=== PATIENT | female | born 1965 | race Caucasian/White ===

== ENCOUNTER 2022-06-11 06:59 | Day surgery (SDC) | payer BC ==
[2022-06-10 11:06] VITALS: BMI 28.3
[2022-06-11] MEDS ORDERED: Ropivacaine 0.5% HCl/PF (150 MG/30 ML VIAL) ONE (08:32)
[2022-06-11] MEDS ORDERED: FENTANYL 50 MCG/ML 1 ML VIAL ONE ×2 (08:32→12:07)
[2022-06-11] MEDS ORDERED: Midazolam HCl 2 mg/2 ml Vial ONE (08:32)
[2022-06-11] MEDS ORDERED: Scopolamine 1.5 mg/72 hour Patch ONE (08:40)
[2022-06-11] MEDS ORDERED: Ondansetron PF 4 MG/2 ML Vial ONE ×2 (08:40→10:01)
[2022-06-11] MEDS ORDERED: PHENYLEPHRINE-NS 100 MCG/ML 10 ML SYRINGE ONE (09:49)
[2022-06-11] MEDS ORDERED: Sodium Chloride 0.9% 100 ML ONE (09:53)
[2022-06-11] MEDS ORDERED: CEFAZOLIN 2 GM VIAL ONE (09:53)
[2022-06-11] MEDS ORDERED: fentaNYL PF 100 MCG/2 ML SYRINGE ONE (10:00)
[2022-06-11] MEDS ORDERED: Dexamethasone 20 MG/5 ML VIAL ONE (10:01)
[2022-06-11] MEDS ORDERED: Glycopyrrolate 0.2 MG/ML 5 ML SYRINGE ONE (10:01)
[2022-06-11] MEDS ORDERED: Ketorolac Tromethamine 30 MG/ML VIAL ONE (10:01)
[2022-06-11] MEDS ORDERED: NEOSTIGMINE 3 MG/3 ML SYR 3 MG/3 ML SYRINGE ONE (10:01)
[2022-06-11] MEDS ORDERED: PROPOFOL 200 MG/20 ML VIAL ONE (10:01)
[2022-06-11] MEDS ORDERED: Bupivacaine/Epinephrine 0.25% 30 ML VIAL ONE (10:29)
[2022-06-11] MEDS ORDERED: FENTANYL 50 MCG/ML 1 ML VIAL SLOW IVP PRN (11:53)
[2022-06-11] MEDS ORDERED: Ropivacaine 0.2% 550 ML 550 ML NERVE BLCK SCH (12:00)
[2022-06-11] MEDS ORDERED: Promethazine HCl 25 MG/ML VIAL IM PRN (12:00)
[2022-06-11] MEDS ORDERED: Ketorolac Tromethamine 30 MG/ML VIAL IVP PRN (12:00)
[2022-06-11] MEDS ORDERED: Zolpidem Tartrate 5 MG TAB PO PRN (12:00)
[2022-06-11] MEDS ORDERED: Ondansetron PF 4 MG/2 ML Vial IVP PRN (12:00)
== END 2022-06-11 14:50 | disposition home or self-care (01) ==
LOC: SDC 06:59
PROVIDERS: ATTEND Orthopaedic Surgery
PROC: 0LQ24ZZ Repair Left Shoulder Tendon, Percutaneous Endoscopic Approach (ICD-10-PCS; principal; 2022-06-11)
DX: M75.112 Incomplete rotator cuff tear or rupture of left shoulder, not specified as traumatic (principal); M75.52 Bursitis of left shoulder; M75.42 Impingement syndrome of left shoulder; G89.29 Other chronic pain; M25.512 Pain in left shoulder; H81.09 Meniere's disease, unspecified ear; Z79.899 Other long term (current) drug therapy; Z88.5 Allergy status to narcotic agent
CPT/HCPCS: A4306; C1713; J1100; J1885; J2250; J2405; J2704; J2795; J3010; J3490

== ENCOUNTER 2023-11-05 07:15 | Day surgery (SDC) | payer BC ==
[2023-11-02 15:24] VITALS: BMI 28.3
[2023-11-05] MEDS ORDERED: EPINEPHrine 1 MG/ML VIAL ONE (08:01)
[2023-11-05] MEDS ORDERED: Lidocaine 1% (PF) 30 ML VIAL ONE (08:02)
[2023-11-05] MEDS ORDERED: fentaNYL 50 mcg/mL 1 mL Vial ONE ×2 (08:09→08:39)
[2023-11-05] MEDS ORDERED: Midazolam HCl 2 mg/2 ml Vial ONE (08:10)
[2023-11-05] MEDS ORDERED: Ropivacaine 0.5% HCl/PF (150 MG/30 ML VIAL) ONE (08:10)
[2023-11-05] MEDS ORDERED: Ropivacaine 0.2% HCl/PF 20 ML ONE (08:10)
[2023-11-05] MEDS ORDERED: CEFAZOLIN 2 GM VIAL ONE (08:15)
[2023-11-05] MEDS ORDERED: Sodium Chloride 0.9% 100 ML ONE (08:16)
[2023-11-05] MEDS ORDERED: PROPOFOL 20 ML ONE (08:38)
[2023-11-05] MEDS ORDERED: Ondansetron PF 4 MG/2 ML Vial IVP PRN (08:45)
[2023-11-05] MEDS ORDERED: Promethazine HCl 25 MG/ML VIAL IM PRN (08:45)
[2023-11-05] MEDS ORDERED: HYDROcodone/Acetaminophen 10/325 mg Tablet PO PRN ×2 (08:45)
[2023-11-05] MEDS ORDERED: Ropivacaine 0.2% 550 ML 550 ML NERVE BLCK SCH (08:45)
[2023-11-05] MEDS ORDERED: Zolpidem Tartrate 5 MG TAB PO PRN (08:45)
[2023-11-05] MEDS ORDERED: traMADol HCl 50 MG TAB PO PRN ×2 (08:45)
[2023-11-05] MEDS ORDERED: Metoclopramide HCl 10 MG (2 mL) VIAL ONE (08:48)
[2023-11-05] MEDS ORDERED: Esmolol 100 MG/10 ML VIAL ONE (08:48)
[2023-11-05] MEDS ORDERED: Rocuronium Bromide 10 MG/ML (10ML VIAL) ONE (08:48)
[2023-11-05] MEDS ORDERED: diphenhydrAMINE 50 MG/ML VIAL ONE (08:48)
[2023-11-05] MEDS ORDERED: Ketorolac Tromethamine 30 MG (1 mL) VIAL ONE (08:48)
[2023-11-05] MEDS ORDERED: Ondansetron PF 4 MG/2 ML Vial ONE (09:31)
[2023-11-05] MEDS ORDERED: Dexamethasone 4 mg/ml Vial ONE (09:31)
[2023-11-05] MEDS ORDERED: PHENYLEPHRINE-NS 100 MCG/ML 10 ML SYRINGE ONE (09:40)
[2023-11-05] MEDS ORDERED: Phenylephrine 10 MG/ML VIAL ONE (09:40)
[2023-11-05] MEDS ORDERED: SUGAMMADEX SODIUM 200 MG/2 ML VIAL ONE (09:59)
== END 2023-11-05 11:52 | disposition home or self-care (01) ==
LOC: SDC 07:15
PROVIDERS: ATTEND Orthopaedic Surgery
PROC: 0LS34ZZ Reposition Right Upper Arm Tendon, Percutaneous Endoscopic Approach (ICD-10-PCS; principal; 2023-11-05)
DX: M75.111 Incomplete rotator cuff tear or rupture of right shoulder, not specified as traumatic (principal); M67.819 Other specified disorders of synovium and tendon, unspecified shoulder; M75.31 Calcific tendinitis of right shoulder; Z91.040 Latex allergy status; Z88.8 Allergy status to other drugs, medicaments and biological substances
CPT/HCPCS: A4306; C1713; J0171; J1100; J1200; J1885; J2001; J2250; J2371; J2405; J2704; J2765; J2795; J3010; J3490